=== PATIENT | male | born 1990 | race Two or more races ===

== ENCOUNTER 2017-03-07 12:56 | Inpatient (IN) | payer MEDICAID, OTHER ==
[~2017-03-07] VITALS: Ht 160 cm; Wt 49.1 kg
[2017-03-07] MEDS ORDERED: SODIUM CHLORIDE 0.9% 1,000 ML IVB ONE (13:49)
[2017-03-07 14:36] LABS: Basophils # (auto) 0.1 uL; Basophils % (auto) 0.3 % (0.0-2.0); DEFINITIVE VIEW TRANSMISSION; Eosinophils # (auto) 0.1 uL; Eosinophils % (auto) 0.5 % (0.0-7.0); Hemoglobin 14.6 g/dL (13.5-17.5); Lymphocytes % (auto) 18.3 % (10.0-50.0); Mean Corpuscular Hgb Conc. 33.1 g/dL (32.0-36.0); Mean Corpuscular Volume 93.7 fL (80.0-100.0); Mean Platelet Volume 9.1 fL (7.4-10.4); Monocytes # (auto) 2.4 uL; Monocytes % (auto) 14.9 % (0.0-12.0); Neutrophils # (auto) 10.7 uL; Platelet Count (auto) 236 10^3/uL (140-450); Red Cell Distribution Width 17.7 % (11.6-16.0); White Blood Cell 16.2 10^3/uL (4.4-10.8)
[2017-03-07 15:02] LABS: Albumin 4.5 g/dL (3.4-5.0); BUN/Creatinine Ratio 33.3; Bilirubin, Total 0.4 mg/dL (0.2-1.0); Calcium 9.8 mg/dL (8.5-10.1); Magnesium 2.7 mg/dL (1.6-2.6); Potassium 3.9 mmol/L (3.5-5.1); Total Protein 8.7 g/dL (6.4-8.2)
[2017-03-07] MEDS ORDERED: cefTRIAXone 1GM/50ML D5W 50 ML IV ONE (17:15)
[2017-03-07 17:54] LABS: Urine Bilirubin Negative (Negative); Urine Blood Negative /uL (Negative); Urine Color Yellow (Yellow); Urine Glucose Normal (Normal); Urine Ketone Negative (Negative); Urine Nitrite Negative (Negative); Urine RBC <1 /hpf (0 - 3); Urine Urobilinogen Normal (Negative); Urine pH 6.5 (5.0-8.0)
[2017-03-07] MEDS ORDERED: VALPROATE SOD 250 MG/5 ML ORAL SOLN GT ONE (19:00)
[2017-03-07] MEDS ORDERED: Fibersource Hn 1 Liter GT SCH (19:30)
[2017-03-07] MEDS ORDERED: LORazepam 0.5 MG TAB PEG PRN (19:30)
[2017-03-07] MEDS ORDERED: ONDANSETRON HCL 4 MG/2 ML VIAL IV PRN (19:45)
[2017-03-07] MEDS ORDERED: MORPHINE SULF INJ 2 MG/ML SYRINGE 1ML IV PRN ×2 (19:45)
[2017-03-07] MEDS ORDERED: NITROGLYCERIN 0.4 MG SL TAB SL PRN (19:45)
[2017-03-07] MEDS: VALPROATE SOD 250 MG/5 ML ORAL SOLN GT SCH (22:00)
[2017-03-07] MEDS: FREE WATER PEG SCH (22:20)
[2017-03-07] MEDS: lamoTRIgine 100 MG TAB PEG SCH (22:20)
[2017-03-07] MEDS: SODIUM CHLOR 0.9% PF (SALINE LOCK) 10ML VIAL IV SCH (22:20)
[2017-03-07 23:02] VITALS: BP 113/61
[2017-03-07 23:07] VITALS: BP 113/61
[2017-03-08] VITALS (7 sets, daily range): BP systolic 103–117; BP diastolic 57–74
[2017-03-08] MEDS ORDERED: LAM100T GT (01:54)
[2017-03-08] MEDS ORDERED: CLOB2.5S GT (01:54)
[2017-03-08] MEDS ORDERED: VALP250S16 GT ×2 (01:54)
[2017-03-08] MEDS: FREE WATER PEG SCH ×6 (02:00→21:31)
[2017-03-08] MEDS ORDERED: TIZA2CAP7 GT (02:42)
[2017-03-08] MEDS ORDERED: LORA1TAB12 GT (02:42)
[2017-03-08] MEDS ORDERED: NAPR-604 GT (02:58)
[2017-03-08] MEDS ORDERED: ALBU0.084 NEB (02:58)
[2017-03-08] MEDS ORDERED: [UNRECOGNIZED DRUG - CODE] GT (02:58)
[2017-03-08] MEDS: LORazepam 2MG/ML-1ML VIAL IV PRN ×2 (04:51→20:23)
[2017-03-08] MEDS: VALPROATE SOD 250 MG/5 ML ORAL SOLN GT SCH ×3 (06:07→22:18)
[2017-03-08] MEDS: SODIUM CHLOR 0.9% PF (SALINE LOCK) 10ML VIAL IV SCH ×3 (06:07→22:18)
[2017-03-08 06:13] LABS: Basophils # (auto) 0 uL; Basophils % (auto) 0.3 % (0.0-2.0); Eosinophils # (auto) 0.3 uL; Eosinophils % (auto) 2.6 % (0.0-7.0); Hematocrit 39.9 % (41.0-53.0); Hemoglobin 13.2 g/dL (13.5-17.5); Lymphocytes # (auto) 2.9 uL; Lymphocytes % (auto) 26.9 % (10.0-50.0); Mean Corpuscular Hemoglobin 31.2 pg (28.0-32.0); Mean Corpuscular Hgb Conc. 33.2 g/dL (32.0-36.0); Mean Corpuscular Volume 93.9 fL (80.0-100.0); Mean Platelet Volume 9.5 fL (7.4-10.4); Monocytes # (auto) 1.1 uL; Monocytes % (auto) 10.2 % (0.0-12.0); Neutrophils # (auto) 6.4 uL; Platelet Count (auto) 195 10^3/uL (140-450); Red Cell Distribution Width 17.9 % (11.6-16.0); White Blood Cell 10.6 10^3/uL (4.4-10.8)
[2017-03-08 06:27] LABS: Albumin 3.7 g/dL (3.4-5.0); Bilirubin, Total 0.3 mg/dL (0.2-1.0); Potassium 4.2 mmol/L (3.5-5.1); Total Protein 7.7 g/dL (6.4-8.2)
[2017-03-08] MEDS: lamoTRIgine 100 MG TAB PEG SCH ×2 (09:59→21:22)
[2017-03-08] MEDS: CLOBAZAM 2.5 MG/ML GT SCH ×2 (10:00→21:32)
[2017-03-08] MEDS ORDERED: CLOBAZAM 2.5 MG/ML PEG SCH (10:00)
[2017-03-08] MEDS ORDERED: ACETAMINOPHEN 650 mg PER 20 mL UD GT PRN (14:30)
[2017-03-08] MEDS: TIZANIDINE 4MG TABLET PEG SCH ×2 (14:36→21:31)
[2017-03-08] MEDS: NAPROXEN 500 MG TAB PEG PRN (15:52)
[2017-03-08] MEDS: LEVOFLOXACIN 750MG 150 ML IV SCH (18:24)
[2017-03-08] MEDS ORDERED: LORazepam 2MG/ML-1ML VIAL IV ONE (20:00)
[2017-03-08] MEDS: DOXYCYCLINE HYC 100MG/250ML 250 ML IV SCH (21:30)
[2017-03-08] MEDS: BUDESONIDE (INHALATION) 0.5 MG/2 ML NEB NEB SCH (23:40)
[2017-03-08] MEDS: ALBUTEROL SULF 2.5 MG/0.5ML(0.5%) NEB SOLN NEB PRN (23:44)
[2017-03-08] MEDS: IPRATROPIUM BROM 0.5 MG/2.5ML INH SOL NEB PRN (23:44)
[2017-03-09] VITALS (7 sets, daily range): BP systolic 103–111; BP diastolic 58–71
[2017-03-09] MEDS: FREE WATER PEG SCH ×4 (04:14→14:00)
[2017-03-09] MEDS: VALPROATE SOD 250 MG/5 ML ORAL SOLN GT SCH ×3 (05:56→21:28)
[2017-03-09] MEDS: TIZANIDINE 4MG TABLET PEG SCH ×3 (05:56→21:29)
[2017-03-09] MEDS: SODIUM CHLOR 0.9% PF (SALINE LOCK) 10ML VIAL IV SCH ×3 (05:56→21:29)
[2017-03-09] MEDS: BUDESONIDE (INHALATION) 0.5 MG/2 ML NEB NEB SCH ×2 (08:48→19:25)
[2017-03-09] MEDS: ALBUTEROL SULF 2.5 MG/0.5ML(0.5%) NEB SOLN NEB PRN (08:48)
[2017-03-09] MEDS: IPRATROPIUM BROM 0.5 MG/2.5ML INH SOL NEB PRN (08:48)
[2017-03-09] MEDS: DOXYCYCLINE HYC 100MG/250ML 250 ML IV SCH ×2 (09:14→21:20)
[2017-03-09] MEDS: lamoTRIgine 100 MG TAB PEG SCH ×2 (09:50→21:28)
[2017-03-09] MEDS: NAPROXEN 500 MG TAB PEG PRN (09:51)
[2017-03-09] MEDS: CLOBAZAM 2.5 MG/ML GT SCH ×2 (10:09→21:29)
[2017-03-09] MEDS: LEVOFLOXACIN 750MG 150 ML IV SCH (12:05)
[2017-03-09] MEDS: LORazepam 2MG/ML-1ML VIAL IV PRN (16:36)
[2017-03-09] MEDS: Fibersource Hn 1 Liter GT SCH (21:21)
[2017-03-10 05:00] VITALS: BP 122/71
[2017-03-10] MEDS: IPRATROPIUM BROM 0.5 MG/2.5ML INH SOL NEB PRN (05:47)
[2017-03-10] MEDS: ALBUTEROL SULF 2.5 MG/0.5ML(0.5%) NEB SOLN NEB PRN (05:48)
[2017-03-10] MEDS: BUDESONIDE (INHALATION) 0.5 MG/2 ML NEB NEB SCH (05:49)
[2017-03-10] MEDS: SODIUM CHLOR 0.9% PF (SALINE LOCK) 10ML VIAL IV SCH ×2 (06:02→14:06)
[2017-03-10] MEDS: VALPROATE SOD 250 MG/5 ML ORAL SOLN GT SCH ×2 (06:02→12:48)
[2017-03-10] MEDS: FREE WATER PEG SCH ×2 (06:03→10:00)
[2017-03-10] MEDS: Fibersource Hn 1 Liter GT SCH ×3 (06:03→12:00)
[2017-03-10] MEDS: TIZANIDINE 4MG TABLET PEG SCH ×2 (06:03→15:12)
[2017-03-10 08:00] VITALS: BP 116/57
[2017-03-10] MEDS: LORazepam 2MG/ML-1ML VIAL IV PRN (08:25)
[2017-03-10] MEDS: DOXYCYCLINE HYC 100MG/250ML 250 ML IV SCH (08:25)
[2017-03-10] MEDS: lamoTRIgine 100 MG TAB PEG SCH (10:51)
[2017-03-10] MEDS: LEVOFLOXACIN 750MG 150 ML IV SCH (10:51)
[2017-03-10] MEDS: CLOBAZAM 2.5 MG/ML GT SCH (11:26)
[2017-03-10 12:54] VITALS: BP 117/73
[2017-03-10 18:00] VITALS: BP 112/56
== END 2017-03-10 18:45 | disposition home or self-care (01) | DRG 53 ==
LOC: ER 12:56 → EDBD 12:56 → TELE 12:57 → TELE-WESTW 21:30
PROVIDERS: ADMIT Internal Medicine; ATTEND Internal Medicine
DX: G40.409 Other generalized epilepsy and epileptic syndromes, not intractable, without status epilepticus (principal); J18.9 Pneumonia, unspecified organism; F72 Severe intellectual disabilities; G80.9 Cerebral palsy, unspecified; Z83.3 Family history of diabetes mellitus
CPT/HCPCS: 36415; 71010; 80053; 80164; 81001; 83605; 83735; 85025; 87040; 87086; 94640; 94761; 96361; 96365; J0696; J1956; J3490

== ENCOUNTER 2017-11-15 04:10 | Emergency (ER) | payer MEDICAID ==
[~2017-11-15 04:10] MED LIST: ALBU0.084 NEB; CLOB2.5S GT; LAM100T GT; LORA1TAB12 GT; NAPR375T27 GT; TIZA2CAP7 GT; VALP250S16 GT; [UNRECOGNIZED DRUG - CODE] GT
[2017-11-15] MEDS ORDERED: ACETAMINOPHEN 650 mg PER 20 mL UD GT ONE (04:45)
[2017-11-15 07:17] VITALS: BP 122/66
== END 2017-11-15 10:02 | disposition home or self-care (01) ==
LOC: EDBD 04:10 → ER 04:14
DX: J06.9 Acute upper respiratory infection, unspecified (principal); G80.9 Cerebral palsy, unspecified
CPT/HCPCS: 71045

== ENCOUNTER 2024-09-21 15:17 | Inpatient (IN) | payer MEDICAID ==
[~2024-09-21] VITALS: Ht 157.5 cm; Wt 70.0 kg
[~2024-09-21 15:17] MED LIST changes: +LORA-1123 GT; -LORA1TAB12 GT; +NAPR-957 GT; -NAPR375T27 GT; -VALP250S16 GT; +VALP250S19 GT; +[UNRECOGNIZED DRUG - CODE] GT; -[UNRECOGNIZED DRUG - CODE] GT
--- NOTE | 2024-09-21 15:39 | ED.PDOC ---
SOB-HPI HPI Comments HPI: Poor Historian. 33 y.o non verbal male, presents to the ED via EMS for an evaluation of congestion associated with a cough, phlegm and SOB that started 1-2 days ago. Mother reports patient is on 2 liters oxygen at home via [place], states the past 2 days his saturations have dipped down to 86%-90%. Mother reports a fever of 102 F, has been giving Tylenol and last dosage was at 11am. EMS reports patient's SPO2 read 90% with 2 liters, increased it to 4 liters and has been saturating at 94%. EMS also notes that patient was tachycardiac at 128 and febrile at 99.1 F. Mother reports patient had similar symptoms in the past. No recent use of antibiotics, contact exposure. Vital signs: BP: 123/76 HR: 103 Temp: 99.1 F SPO2: 94% on 4 liters Oxygen NC RR: 18 Patient denies any allergies Past medical history: Microcephalus, Nonverbal and quadriplegic Past surgical history: G-Tube REVIEW OF SYSTEMS: CONSTITUTIONAL: Denies acute: diaphoresis, chills, HEAD: Denies acute: headache, photophobia Eyes: Denies acute: Double vision, vision loss, eye pain, eye discharge. EARS: Denies acute: tinnitus, hearing loss, ear discharge, ear pain, THROAT: Denies acute: sore throat, swelling, difficulty swallowing , pain with swallowing, change in voice. NECK: Denies acute: neck pain, neck swelling, stiff neck. HEART: Denies acute : chest pain, palpitations, LUNGS: Denies acute: wheezing, hemoptysis ABDOMEN: Denies acute: abdominal pain, Nausea, Vomiting, diarrhea, melena , hematemesis, hematochezia SKIN: Denies acute: rash, redness, lesions, itchiness. EXTREMITIES: Denies acute: calf pain, numbness, tingling, weakness, denies pain in extremity. Denies acute: Low back pain. Neuro: Denies acute: focal neurological deficit, motor or sensory focal neurological deficit, tremors, seizure like activity, confusion, dizziness, change in mental status, loss of bowel or bladder function, cauda equina like symptoms. : Denies acute: dysuria, hematuria, flank pain, increase in urinary frequency. PSYCH: Denies acute: hallucination, suicidal ideation, homicidal ideation. PHYSICAL EXAM: General: Mild to moderate acute distress, awake and alert. Head: Microcephalic, atraumatic. Neck: supple, trachea is midline, no swelling. Throat: Speech is nonverbal At baseline. Dry oral mucosa. Eyes:, no erythema, no purulent discharge, no proptosis, no icterus. Heart: regular tachycardia, no significant murmur appreciated. Lungs: Zcsc-wk-cecsryzy respiratory distress, No wheezing, right-sided rhonchi, no crackles. No stridors Abdomen: non tender to palpation, non distended, soft, no guarding, no rebound, + bowel sounds. Neuro: Awake, Alert, at baseline per mother at bedside Skin: no petechia, no purpura, no cyanosis, non-pale, not jaundice. Lower extremities: --no - Pitting edema no acute deformity, no focal swelling, no calf TTP. Face: no apparent facial droop. Chief Complaint: Shortness of Breath Time Seen by MD: 15:22 Reviewed notes: Allergies Information Source: Relative (Mother), Emergency Med Personnel Mode of Arrival: EMS Timing: Days (2) Past Medical History PAST MEDICAL HISTORY: Seizures Past Medical History (Other): quadriplegic, Microcephalus, non verbal Surgical History (Other): G-tube Family History Family History: Unobtainable Social History Smoker: Non-Smoker Alcohol: Denies ETOH Use Drugs: Denies Drug Use Lives In: Home Was a procedure done? Was a procedure done?: No Differential Dx Differential Diagnosis: Asthma, Bronchitis, Respiratory Distress, URI, Other (DDx include ACS, unstable angina, anxiety, PE, pneumothroax, neoplasm, cardiac ischemia, COPD, asthma, CHF, pleural effusion, tobacco abuse, pneumonia, hypoxia, hypercapnia, anemia., infection/sepsis., pulmonary edema. Asthma, Cardiac tamponade, infection.) X-Ray, Labs, Meds, VS Vital Signs Date Time Temp Pulse Resp B/P (MAP) Pulse Ox O2 Delivery O2 Flow Rate FiO2 09/21/24 19:00 108 20 106/61 (76) 96 09/21/24 17:48 22 98 Nasal Cannula* 2 28 09/21/24 17:00 101 16 102/59 (73) 98 09/21/24 15:40 119 22 92 Nasal Cannula* 3 32 09/21/24 15:22 99.1 103 18 123/76 (92) 94 09/21/24 15:22 99.1 103 18 123/76 (92) 94 99.1 Lab Test 09/21/24 16:03 09/21/24 15:47 Range/Units White Blood Count 17.6 H 4.4-10.8 10^3/uL Red Blood Count 4.83 4.5-5.90 10^6/uL Hemoglobin 16.3 13.5-17.5 g/dL Hematocrit 46.3 41.0-53.0 % Mean Corpuscular Volume 95.9 80.0-100.0 fL Mean Corpuscular Hemoglobin 33.7 H 28.0-32.0 pg Mean Corpuscular Hemoglobin Concent 35.1 32.0-36.0 g/dL Red Cell Distribution Width 16.1 H 11.8-14.3 % Platelet Count 153 140-450 10^3/uL Mean Platelet Volume 7.9 6.9-10.8 fL Neutrophils (%) (Auto) 55.2 37.0-80.0 % Lymphocytes (%) (Auto) 29.0 10.0-50.0 % Monocytes (%) (Auto) 15.1 H 0.0-12.0 % Eosinophils (%) (Auto) 0.3 0.0-7.0 % Basophils (%) (Auto) 0.4 0.0-2.0 % Neutrophils # (Auto) 9.7 H 1.6-8.6 10 ^3/uL Lymphocytes # (Auto) 5.1 0.4-5.4 10 ^3/uL Monocytes # (Auto) 2.7 H 0-1.3 10 ^3/uL Eosinophils # (Auto) 0.1 0-0.8 10 ^3/uL Basophils # (Auto) 0.1 0-0.2 10 ^3/uL Nucleated Red Blood Cells 0.6 % Sodium Level 130 L 136-145 mmol/L Potassium Level 4.4 3.5-5.1 mmol/L Chloride Level 99 98-107 mmol/L Carbon Dioxide Level 24 20-31 mmol/L Anion Gap 7 5-15 Blood Urea Nitrogen 12 9-23 mg/dL Creatinine 0.44 L 0.700-1.30 mg/dL Glomerular Filtration Rate Calc 145 >90 mL/min BUN/Creatinine Ratio 27.3 H 10.0-20.0 Serum Glucose 95 74-106 mg/dL Lactic Acid Level 1.3 0.4-2.0 mmol/L Calcium Level 9.7 8.7-10.4 mg/dL Magnesium Level 2.3 1.6-2.6 mg/dL Total Bilirubin 0.6 0.2-1.0 mg/dL Aspartate Amino Transferase (AST) 42 H 13-40 U/L Alanine Aminotransferase (ALT) 35 7-40 U/L Alkaline Phosphatase 108 46-116 U/L Troponin I High Sensitivity 38 </=54 ng/L B-Type Natriuretic Peptide 186.64 0-100 pg/mL Total Protein 7.3 5.7-8.2 g/dL Albumin 4.5 3.2-4.8 g/dL Influenza Type A Antigen Negative Negative Influenza Type B Antigen Negative Negative SARS-CoV-2 Antigen (Rapid) Negative NEGATIVE Current Medications Medications (Trade) Dose Ordered Sig/Misael Route Start Time Stop Time Status Last Admin Sodium Chloride 500 ml @ 500 mls/hr Q1H ONCE IV 09/21/24 15:30 09/21/24 16:29 DC 09/21/24 16:08 Ceftriaxone Sodium 50 ml @ 100 mls/hr ONCE ONCE IV 09/21/24 15:30 09/21/24 15:59 DC 09/21/24 16:08 Albuterol (Ventolin Medneb) 2.5 mg ONCE ONCE NEB 09/21/24 17:30 09/21/24 17:31 DC 09/21/24 17:47 Ipratropium [place] (Atrovent Medneb) 1 mg ONCE ONCE NEB 09/21/24 17:30 09/21/24 17:31 DC 09/21/24 17:47 [place] [id number] Ph: [phone] DIAGNOSTIC IMAGING Diagnostic Imaging Report : [id number] Signed PATIENT: ASAI MORALES ACCT: [id number] UNIT: [id number] : 1990 LOC: ER ROOM / BED: / AGE / SEX: 33 / M ADM STATUS: REG ER SERVICE 1527 ORDERING PHYSICIAN: KEON COOMBS DO PROCEDURE(s): CXRP - CHEST PORTABLE REASON: sob ORDER NUMBER(s): [id number], ACCESSION NUMBER(s): [id number] Procedure: XY CHEST PORTABLE 09/21/2024 03:47 PM Indication: sob. Comparison: None TECHNIQUE: XY CHEST PORTABLE FINDINGS: Medical devices: None. Cardiomediastinal: The heart is normal in size. Pulmonary vasculature is within normal limits. Lungs: Pulmonary opacities are seen in the left lower lung zone. Parenchymal scarring noted in the right midlung zone. The costophrenic angles are clear. No pneumothorax. Bones/soft tissues: No acute abnormality is noted. Levoscoliosis of the thoracic spine noted. IMPRESSION: 1. Left lower lobe pneumonia. ATED BY: AILIN BISWAS MD DICTATED DATE/TIME: 09/21/241615 SIGNED BY: AILIN BISWAS MD SIGNED DATE/TIME: 09/21/241615 CC: Time of 1ST Reevaluation: 15:26 Reevaluation 1ST: Unchanged Patient Education/Counseling: Other Family Education/Counseling: Diagnosis, Treatment, Prognosis Comments Patient presented with the above HPI.--dyspnea---workup was initiated. patient was found with the above mentioned diagnosis. Patient was given: Fluids, DuoNeb treatment, Rocephin, Patient ED course and VS have been stabilized. Patient has been reassessed in the ED and remained in a stable condition. Pertinent incidental findings were discussed with the patient and/or family. Patient/family voices understanding and is agreeable with plan. Patient has been observed in the ED adequate length of time to insure improvement/stability. patient was admitted to the medicine team for further evaluation and treatment of their presentation. All the reports of any imaging studies that were ordered by myself were reviewed by myself. Departure 1 Departure Time of Disposition: 16:40 Impression: Primary Impression: Pneumonia Additional Impressions: Hypoxemia Leukocytosis Disposition: ADMITTED INPATIENT Admit to: Tele Condition: Guarded Discharged With: Self Critical Care Note Critical Care Time?: Yes (35 min-critical care time only) I personally scribed for KEON COOMBS DO ([email or web address]) on 09/21/24 at 15:39. Electronically submitted by Alisha Krishnamurthy ([facility]). I personally scribed for KEON COOMBS DO ([email or web address]) on 09/21/24 at 16:50. Electronically submitted by Alisha Krishnamurthy ([facility]). KEON COOMBS DO Sep 21, 2024 15:39
[2024-09-21 15:40] VITALS: PULSE 119; RESP 22; O2SAT 92
[2024-09-21] MEDS: SODIUM CHLORIDE 0.9% 500 ML IV ONE (16:08)
[2024-09-21] MEDS: cefTRIAXone 1GM/50ML D5W 50 ML IV ONE (16:08)
--- NOTE | 2024-09-21 16:18 | DVH ---
Procedure: XY CHEST PORTABLE 09/21/2024 03:47 PM Indication: sob. Comparison: None TECHNIQUE: XY CHEST PORTABLE FINDINGS: Medical devices: None. Cardiomediastinal: The heart is normal in size. Pulmonary vasculature is within normal limits. Lungs: Pulmonary opacities are seen in the left lower lung zone. Parenchymal scarring noted in the ri ght midlung zone. The costophrenic angles are clear. No pneumothorax. Bones/soft tissues: No acute abnormality is noted. Levoscoliosis of the thoracic spine noted. IMPRESSION: 1. Left lower lobe pneumonia.
[2024-09-21 16:23] LABS: Basophils # (auto) 0.1 10 ^3/uL (0-0.2); Basophils % (auto) 0.4 % (0.0-2.0); Eosinophils # (auto) 0.1 10 ^3/uL (0-0.8); Eosinophils % (auto) 0.3 % (0.0-7.0); Hematocrit 46.3 % (41.0-53.0); Hemoglobin 16.3 g/dL (13.5-17.5); Lymphocytes # (auto) 5.1 10 ^3/uL (0.4-5.4); Mean Corpuscular Hemoglobin 33.7 pg (28.0-32.0); Mean Corpuscular Hgb Conc. 35.1 g/dL (32.0-36.0); Mean Corpuscular Volume 95.9 fL (80.0-100.0); Monocytes # (auto) 2.7 10 ^3/uL (0-1.3); Monocytes % (auto) 15.1 % (0.0-12.0); Neutrophils # (auto) 9.7 10 ^3/uL (1.6-8.6); Neutrophils % (auto) 55.2 % (37.0-80.0); Nucleated Red Blood Cells % 0.6 %; Platelet Count (auto) 153 10^3/uL (140-450); Red Blood Cells 4.83 10^6/uL (4.5-5.90); Red Cell Distribution Width 16.1 % (11.8-14.3); White Blood Cell 17.6 10^3/uL (4.4-10.8)
[2024-09-21 16:44] LABS: Alanine Aminotransferase 35 U/L (7-40); Albumin 4.5 g/dL (3.2-4.8); Alkaline Phosphatase 108 U/L (46-116); Anion Gap 7 (5-15); Aspartate Aminotransferase 42 U/L (13-40); BUN/Creatinine Ratio 27.3 (10.0-20.0); Blood Urea Nitrogen 12 mg/dL (9-23); Calcium 9.7 mg/dL (8.7-10.4); Carbon Dioxide 24 mmol/L (20-31); Chloride 99 mmol/L (98-107); Glucose 95 mg/dL (74-106); Magnesium 2.3 mg/dL (1.6-2.6); Potassium 4.4 mmol/L (3.5-5.1); Sodium 130 mmol/L (136-145)
[2024-09-21 16:45] LABS: Bilirubin, Total 0.6 mg/dL (0.2-1.0); Total Protein 7.3 g/dL (5.7-8.2)
[2024-09-21 16:53] LABS: COVID19 ANTIGEN SOFIA FIA NEGATIVE (NEGATIVE)
[2024-09-21 16:54] LABS: Rapid Influenza A Negative (Negative); Rapid Influenza B Negative (Negative)
[2024-09-21] MEDS: ALBUTEROL SULF 2.5 MG/0.5ML(0.5%) NEB SOLN NEB ONE (17:47)
[2024-09-21] MEDS: IPRATROPIUM BROM 0.5 MG/2.5ML INH SOL NEB ONE (17:47)
[2024-09-21 19:45] VITALS: PULSE 97; RESP 23; O2SAT 98
[2024-09-21] MEDS ORDERED: MORPHINE SULFATE INJ 2 MG/ml SYRG IV PRN (20:45)
[2024-09-21] MEDS ORDERED: NITROGLYCERIN 0.4 MG SL TAB SL PRN (20:45)
[2024-09-21 21:23] LABS: Basophils # (auto) 0 10 ^3/uL (0-0.2); Basophils % (auto) 0.2 % (0.0-2.0); Eosinophils # (auto) 0.1 10 ^3/uL (0-0.8); Eosinophils % (auto) 0.4 % (0.0-7.0); Hematocrit 51.4 % (41.0-53.0); Hemoglobin 17.4 g/dL (13.5-17.5); Lymphocytes # (auto) 6.2 10 ^3/uL (0.4-5.4); Mean Corpuscular Hemoglobin 33.8 pg (28.0-32.0); Mean Corpuscular Hgb Conc. 33.8 g/dL (32.0-36.0); Mean Corpuscular Volume 99.9 fL (80.0-100.0); Monocytes # (auto) 1.6 10 ^3/uL (0-1.3); Neutrophils # (auto) 10.3 10 ^3/uL (1.6-8.6); Neutrophils % (auto) 56.4 % (37.0-80.0); Nucleated Red Blood Cells % 0.9 %; Platelet Count (auto) 119 10^3/uL (140-450); Red Blood Cells 5.14 10^6/uL (4.5-5.90); Red Cell Distribution Width 16.4 % (11.8-14.3); White Blood Cell 18.3 10^3/uL (4.4-10.8)
[2024-09-21] MEDS ORDERED: ACETAMINOPHEN IV 1000 MG/100ML (10MG/ML) IV PRN (21:30)
[2024-09-21 21:43] LABS: Alanine Aminotransferase 41 U/L (7-40); Albumin 4.7 g/dL (3.2-4.8); Alkaline Phosphatase 133 U/L (46-116); Anion Gap 10 (5-15); Aspartate Aminotransferase 51 U/L (13-40); BUN/Creatinine Ratio 13.7 (10.0-20.0); Bilirubin, Total 0.5 mg/dL (0.2-1.0); Blood Urea Nitrogen 7 mg/dL (9-23); Calcium 9.8 mg/dL (8.7-10.4); Carbon Dioxide 21 mmol/L (20-31); Chloride 101 mmol/L (98-107); Glucose 113 mg/dL (74-106); Sodium 132 mmol/L (136-145)
[2024-09-22] VITALS (8 sets, daily range): BP systolic 90–128; BP diastolic 58–67; PULSE 77–101; RESP 17–20; TEMP 97.6–99.3; O2SAT 90–99
[2024-09-22] MEDS: ENOXAPARIN SOD 40 MG/0.4 ML SYRINGE SC ONE
[2024-09-22] MEDS: SODIUM CHLORIDE 0.9% 1,000 ML IV SCH ×2 (00:30→10:32)
--- NOTE | 2024-09-22 00:36 | DVHHPRES ---
History of Present Illness Resident Creating Document: PARDEEP LEBLANC RESIDENT History of Present Illness ASIA MORALES is 33 years old nonverbal, male with a PMH of microcephaly, quadriplegia accompanied by mother presented to the ED with the chief complaints of cough, congestion since 1 day prior to admission. Patient mother reported, has been coughing, congested since 3:00 a.m. yesterday morning with saturation 86-88 associated with fever and shortness of breath, which prompted him to visit ED. patient mother reported he does have sick contacts, patient's mother, family members are have flu-like symptoms. On my assessment patient denies vomiting, diarrhea, chest pain, diaphoresis and other associated symptoms Past Medical History Microcephalic, quadriplegia, seizure, recurrent pneumonias Past Surgical History G-tube Family History: None Past Social History Lives at home with the family Review of Systems Constitutional: Yes: Fever, Chills Eyes: No: Pain, Vision change, Conjunctivae inflammation, Eyelid inflammation, Other, Redness ENT: No: Ear pain, Ear discharge, Nose pain, Nose discharge, Nose congestion, Mouth pain, Mouth swelling, Throat pain, Throat swelling, Other Respiratory: Cough, Shortness of breath Cardiovascular: No: Chest Pain, Palpitations, Orthopnea, Paroxysmal Noc. Dyspnea, Edema, Lt Headedness, Other Gastrointestinal: No: Nausea, Vomiting, Abdominal Pain, Diarrhea, Constipation, Melena, Hematochezia, Other Genitourinary: No Dysuria, No Frequency, No Incontinence, No Hematuria, No Retention, No Other Musculoskeletal: other; No: neck pain, shoulder pain, arm pain, back pain, hand pain, leg pain, foot pain Skin: No: Rash, Lesions, Jaundice, Bruising, Other Neurological: Other (Nonverbal, quadriplegia, microcephaly) Allergies: Coded Allergies: NO KNOWN ALLERGIES (Unverified , 03/07/17) Medications Current Medications Medications Dose Ordered Sig/Misael Route Start Time Stop Time Status Last Admin Dose Admin Nitroglycerin 0.4 mg Q5MINP PRN SL 09/21/24 20:45 Morphine Sulfate 2 mg Q30M PRN IV 09/21/24 20:45 Enoxaparin Sodium 40 mg DAILY SC 09/23/24 10:00 Ceftriaxone Sodium 50 ml @ 100 mls/hr DAILY@09 IV 09/22/24 09:00 Cancel Azithromycin 250 ml @ 125 mls/hr DAILY IV 09/22/24 00:30 Ceftriaxone Sodium 50 ml @ 100 mls/hr DAILY@ IV 09/22/24 09:00 Sodium Chloride 1,000 ml @ 75 mls/hr [id number] IV 09/22/24 00:30 UNV Exam Vital Signs Vital Signs Date Time Temp Pulse Resp B/P (MAP) Pulse Ox O2 Delivery O2 Flow Rate FiO2 09/21/24 23:28 99.4 120 26 106/64 (78) 97 99.4 09/21/24 19:45 Nasal Cannula* 3 32 Exam General Appearance: Pt is lying on bed, Non verabal HEENT: Atraumatic, Mucous membranes moist/pink Respiratory: Clear to auscultation, decreased air movement Cardiovascular: Regular rate, Normal S1, Normal S2, No murmurs Abdominal: Active bowel sounds, Soft, no distention, no tenderness Extremities: Quadriplegic Skin: deferred Neuro: Nonverbal, quadriplegia Psych/Mental Status: Mental status NL, Mood NL Nurse was there as sharperone during examination Labs/Xrays Labs Test 09/21/24 21:15 09/21/24 16:03 09/21/24 15:47 Range/Units White Blood Count 18.3 H 4.4-10.8 10^3/uL Red Blood Count 5.14 4.5-5.90 10^6/uL Hemoglobin 17.4 13.5-17.5 g/dL Hematocrit 51.4 # 41.0-53.0 % Mean Corpuscular Volume 99.9 # 80.0-100.0 fL Mean Corpuscular Hemoglobin 33.8 H 28.0-32.0 pg Mean Corpuscular Hemoglobin Concent 33.8 32.0-36.0 g/dL Red Cell Distribution Width 16.4 H 11.8-14.3 % Platelet Count 119 L 140-450 10^3/uL Mean Platelet Volume 8.2 6.9-10.8 fL Neutrophils (%) (Auto) 56.4 37.0-80.0 % Lymphocytes (%) (Auto) 34.0 10.0-50.0 % Monocytes (%) (Auto) 9.0 0.0-12.0 % Eosinophils (%) (Auto) 0.4 0.0-7.0 % Basophils (%) (Auto) 0.2 0.0-2.0 % Neutrophils # (Auto) 10.3 H 1.6-8.6 10 ^3/uL Lymphocytes # (Auto) 6.2 H 0.4-5.4 10 ^3/uL Monocytes # (Auto) 1.6 H 0-1.3 10 ^3/uL Eosinophils # (Auto) 0.1 0-0.8 10 ^3/uL Basophils # (Auto) 0 0-0.2 10 ^3/uL Nucleated Red Blood Cells 0.9 % Sodium Level 132 L 136-145 mmol/L Potassium Level 5.0 3.5-5.1 mmol/L Chloride Level 101 98-107 mmol/L Carbon Dioxide Level 21 20-31 mmol/L Anion Gap 10 5-15 Blood Urea Nitrogen 7 L 9-23 mg/dL Creatinine 0.51 L 0.700-1.30 mg/dL Glomerular Filtration Rate Calc 139 >90 mL/min BUN/Creatinine Ratio 13.7 10.0-20.0 Serum Glucose 113 H 74-106 mg/dL Calcium Level 9.8 8.7-10.4 mg/dL Total Bilirubin 0.5 0.2-1.0 mg/dL Aspartate Amino Transferase (AST) 51 H 13-40 U/L Alanine Aminotransferase (ALT) 41 H 7-40 U/L Alkaline Phosphatase 133 H 46-116 U/L Total Protein 8.0 5.7-8.2 g/dL Albumin 4.7 3.2-4.8 g/dL Lactic Acid Level 1.3 0.4-2.0 mmol/L Magnesium Level 2.3 1.6-2.6 mg/dL Troponin I High Sensitivity 38 </=54 ng/L B-Type Natriuretic Peptide 186.64 0-100 pg/mL Influenza Type A Antigen Negative Negative Influenza Type B Antigen Negative Negative SARS-CoV-2 Antigen (Rapid) Negative NEGATIVE Assessment/Plan Assessment/Plan # sepsis likely due to pneumonia # Acute G+/G- bacterial PNA # acute hypoxic respiratory failure likely due to above -evident on CXR -currently in 3 L oxygen at OR -currently on Rocephin, azithromycin and IVF -ordered respiratory, blood cultures -COVID-19 and influenza negative -monitor lab # hyponatremia -currently on IVF -monitor lab # mild transaminitis -monitor lab Lovenox for now No gi ppx Diabetes diet Reconciled home med Goals of care discussed with the patient for more than 27 minutes: Full code status Case management discussed with Dr. Dove, patient's nurse Plan discussed with: Patient My Orders Orders - PARDEEP LEBLANC RESIDENT Procedure Category Date Status Time Admit ADMIT 09/21/24 Transmitted 20:40 Allergies ALONZO 09/21/24 In Process 20:40 Code Status CODE 09/21/24 Transmitted 20:40 Complete Blood Count LAB 09/22/24 Logged 04:00 Comprehensive LAB 09/22/24 Logged Metabolic Panel 04:00 Nitroglycerin PHA 09/21/24 In Process Sublingual (Ntrostat 20:45 Morphine Sulfate PHA 09/21/24 In Process Injection 20:45 Oxygen By Nasal RT 09/21/24 Transmitted Cannula 20:40 Stat Ekg For Chest ALONZO 09/21/24 In Process Pain 20:40 Notify Md Of Changes ALONZO 09/21/24 In Process From Base 20:40 Management Sme For ALONZO 09/21/24 In Process 24 Hours 20:40 Emergency Dysrhythmia ALONZO 09/21/24 In Process Protocol 20:40 Rhythm Strips Once ALONZO 09/21/24 In Process Every Shift 20:40 Regular Diet DIET 09/22/24 Transmitted Breakfast Drug Screen LAB 09/21/24 Logged 23:54 Hemoglobin A1c LAB 09/21/24 Logged 23:54 PTPTT LAB 09/22/24 Logged 04:00 Thyroid Stimulating LAB 09/21/24 Logged Hormone 23:54 Urinalysis LAB 09/21/24 Logged 23:54 Vitamin B12 LAB 09/21/24 Logged 23:54 Vitamin D, 25-Hydroxy LAB 09/21/24 Logged 23:54 Enoxaparin Sodium PHA 09/23/24 In Process (Lovenox) 10:00 Azithromycin 500mg/ PHA 09/22/24 In Process 250ml (Zithromax 50 00:30 Blood Culture PHIL 09/22/24 Logged 00:29 Urine Bacterial PHIL 09/22/24 Logged Culture 00:29 Respiratory Culture PHIL 09/22/24 Logged W/ Gs 00:29 Ceftriaxone 1gm/50ml PHA 09/22/24 In Process D5w (Rocephin) 09:00 Sodium Chloride 0.9% PHA 09/22/24 Logged 00:30 PARDEEP LEBLANC RESIDENT Sep 22, 2024 00:36
[2024-09-22] MEDS: AZITHROMYCIN 500MG/ 250ML 250 ML IV SCH (01:01)
[2024-09-22 06:44] LABS: Chloride 106 mmol/L (98-107); Potassium 4.5 mmol/L (3.5-5.1); Sodium 136 mmol/L (136-145)
[2024-09-22 06:45] LABS: Anion Gap 6 (5-15); Carbon Dioxide 24 mmol/L (20-31)
[2024-09-22 06:46] LABS: Calcium 8.9 mg/dL (8.7-10.4)
[2024-09-22 06:49] LABS: Alkaline Phosphatase 103 U/L (46-116)
[2024-09-22 06:50] LABS: Glucose 74 mg/dL (74-106)
[2024-09-22 06:51] LABS: Aspartate Aminotransferase 38 U/L (13-40); Blood Urea Nitrogen 6 mg/dL (9-23)
[2024-09-22 06:52] LABS: Albumin 3.7 g/dL (3.2-4.8)
[2024-09-22 06:53] LABS: Bilirubin, Total 0.4 mg/dL (0.2-1.0); Total Protein 6.3 g/dL (5.7-8.2)
[2024-09-22 07:05] LABS: Alanine Aminotransferase 33 U/L (7-40)
[2024-09-22 08:15] LABS: Basophils # (auto) 0 10 ^3/uL (0-0.2); Basophils % (auto) 0.2 % (0.0-2.0); Eosinophils # (auto) 0 10 ^3/uL (0-0.8); Eosinophils % (auto) 0.3 % (0.0-7.0); Hematocrit 42.5 % (41.0-53.0); Hemoglobin 14.1 g/dL (13.5-17.5); Lymphocytes # (auto) 3.9 10 ^3/uL (0.4-5.4); Lymphocytes % (auto) 35.1 % (10.0-50.0); Mean Corpuscular Hgb Conc. 33.2 g/dL (32.0-36.0); Mean Corpuscular Volume 99.2 fL (80.0-100.0); Monocytes # (auto) 1.4 10 ^3/uL (0-1.3); Monocytes % (auto) 12.5 % (0.0-12.0); Neutrophils # (auto) 5.8 10 ^3/uL (1.6-8.6); Neutrophils % (auto) 51.9 % (37.0-80.0); Nucleated Red Blood Cells % 0.2 %; Platelet Count (auto) 136 10^3/uL (140-450); Red Blood Cells 4.28 10^6/uL (4.5-5.90); Red Cell Distribution Width 16.3 % (11.8-14.3); White Blood Cell 11.1 10^3/uL (4.4-10.8)
[2024-09-22] MEDS ORDERED: CALAMINE TOPical LOTION180 ML TOP PRN (08:45)
[2024-09-22] MEDS: SODIUM CHLORIDE 0.9% 500 ML IV ONE ×2 (08:57→16:09)
[2024-09-22] MEDS ORDERED: cefTRIAXone 1GM/50ML D5W 50 ML IV SCH (09:00)
[2024-09-22] MEDS: cefTRIAXone 1GM/50ML D5W 50 ML IV SCH (09:12)
[2024-09-22] MEDS: SODIUM CHLORIDE 0.9% 250 ML IV ONE (09:13)
[2024-09-22] MEDS: lamoTRIgine 100 MG TAB GT SCH (10:00)
[2024-09-22] MEDS: DIVALPROEX SOD PO SCH ×2 (11:00→18:57)
[2024-09-22] MEDS: NUTREN 1.0 250 ML BTL GT SCH (12:00)
[2024-09-22] MEDS: ERGOCALCIFEROL 50,000 UNIT(1.25MG) CAP PO SCH (12:47)
[2024-09-22] MEDS ORDERED: LAMO200T34 PO (13:12)
[2024-09-22] MEDS ORDERED: NAPR-957 PO (13:12)
[2024-09-22] MEDS ORDERED: LORA2CON PO (13:12)
[2024-09-22] MEDS ORDERED: DIVA500T13 PO (13:12)
[2024-09-22] MEDS ORDERED: DIVA1TAB37 PO (13:12)
[2024-09-22] MEDS ORDERED: TIZA4TAB9 PO (13:12)
[2024-09-22] MEDS ORDERED: PRO125RS PO (13:12)
[2024-09-22 14:31] LABS: INR 1.13 (0.9-1.15); Partial Thromboplastin Time 26.8 SEC (24.5-34.5); Prothrombin Time 11.9 sec (9.3-11.8)
[2024-09-22] MEDS ORDERED: CLOB2.5S OR (15:19)
[2024-09-22] MEDS ORDERED: LORazepam 2MG/ML-1ML VIAL IV PRN (15:30)
[2024-09-22] MEDS ORDERED: SODIUM CHLORIDE 0.9% 250 ML IV ONE (15:30)
[2024-09-22] MEDS ORDERED: Jevity 1.2 Cal/Fiber 1 Liter GT SCH (16:30)
--- NOTE | 2024-09-22 17:13 | DVHPNRES ---
Progress Note Date Seen: Sep 22, 2024 Resident Creating Document: DEBBY HOFFMAN RESIDENT Medical Necessity Reason Pt with a Central, PICC or Fol: No Subjective Review of Systems This is a 33-year-old nonverbal male patient with PMHx of cerebral palsy, microcephaly, 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 Per patient's mother present at bedside, she was experiencing sore throat, fever and chills following which the patient also started experiencing similar symptoms associated with a productive cough which is yellow and sometimes pinkish in color. Says that the patient has oxygen at home which he uses intermittently. Patient was saturating 88% on 2 L oxygen. Patient was distressed, his respiratory rate was high and he was experiencing fever and chills but denies nausea/vomiting. Patient's mother reports that ES chronically constipated but recently started getting loose stools but less than 3 stools in a day. Patient is nonambulatory and he experiencing seizures every couple of days which are grand mal. He has a epilepsy as a child. Tumbler Drier Operator: Dr. Thomas PCP Dr. Salazar Home medications: Lamotrigine, tizanidine, valproate, lorazepam Patient is seen and examined in ER. Mother is the power of workers compensation defense attorney. Reports no acute distress but is nonfvcal. Mother says that this is the patient's baseline. Chest x-ray completed shows left lobar lobe opacity, started on IV azithromycin and ceftriaxone. Objective vital signs Vital Sign Date Time Temp Pulse Resp B/P (MAP) Pulse Ox O2 Delivery O2 Flow Rate FiO2 09/22/24 08:16 97.5 70 14 80/48 (59) 96 97.5 09/22/24 07:30 Nasal Cannula* 3 32 Total Intake and Output 09/21/24 09/21/24 09/22/24 15:00 23:00 07:00 Intake Total 550 ml Balance 550 ml medications Current Medications Medications Dose Ordered Sig/Misael Route Start Time Stop Time Status Last Admin Dose Admin Nitroglycerin 0.4 mg Q5MINP PRN SL 09/21/24 20:45 Morphine Sulfate 2 mg Q30M PRN IV 09/21/24 20:45 Enoxaparin Sodium 40 mg DAILY SC 09/23/24 10:00 Ceftriaxone Sodium 50 ml @ 100 mls/hr DAILY@09 IV 09/22/24 09:00 Cancel Azithromycin 250 ml @ 125 mls/hr DAILY IV 09/22/24 00:30 09/22/24 10:32 125 MLS/HR Ceftriaxone Sodium 50 ml @ 100 mls/hr DAILY@09 IV 09/22/24 09:00 09/22/24 09:12 100 MLS/HR Lamotrigine 200 mg BID GT 09/22/24 10:00 Patient Own Medication 3 DAILY PO 09/22/24 11:00 Calamine 1 applic QIDP PRN TOP 09/22/24 08:45 Ergocalciferol 50,000 unit Q7D PO 09/22/24 09:45 Patient Own Medication 4 QPM PO 09/22/24 18:00 Lorazepam 1 mg Q5MINP PRN IV 09/22/24 15:30 Lorazepam 0.5 mg Q6HP PRN IV 09/22/24 15:30 Enteral Nutritional Formula 1,000 ml 30ML/HR GT 09/22/24 16:30 Patient Own Medication 1 DAILY PO 09/23/24 10:00 UNV Examination Young male patient lying in bed, in no acute distress General: Afebrile, palor, mucosae are moist Cardiovascular: Regular S1 and S2. No murmurs, gallops or rubs. No JVD elevation. No pedal edema. Grade 1 pressure sore present on the malleolus in the lower extremity. Skin is intact. Respiratory: Saturating 95% on 2 L nasal cannula. Clear lung sounds on auscultation Abdomen: Soft, nontender, nondistended, normoactive bowel sounds, no rebound tenderness, no organomegaly, no masses Genitourinary: Deferred MSK/skin: Mobilizes 4 limbs. Skin is dry and warm Neurological: No motor, no sensitive deficits, normal speech. Pupils are isocoric and reactive. Psych/Mental Status: Could not be determined laboratory and microbiology Laboratory Tests 09/22/24 07:49 09/22/24 06:05 Test 09/22/24 06:05 Range/Units Serum Glucose 74 74-106 mg/dL Microbiology Date/Time Source Procedure Growth Status 09/21/24 16:03 Blood Blood Culture - Preliminary NO GROWTH AFTER 24 HOURS OF INCUBATION. Resulted Labs and/or images reviewed: Labs reviewed by me, Image(s) reviewed by me Problem List/Assessment/Plan Problem List/Assessment/Plan Sepsis secondary to probable Community-acquired pneumonia, Gram-positive and Gram-negative Acute hypoxic respiratory failure WBC 18.3, now 11 Started IV ceftriaxone and azithromycin 09/21 Sputum culture with induction pending Nebulized treatment with levalbuterol and ipratropium Blood culture pending MRSA nares pending Ruled out COVID and influenza at this point Testing negative Lower extremity malleolar grade 1 pressure sore-skin intact-present on admission Calamine lotion q.i.d.. Foam cradle to bilateral foot Position change q.12 History of epilepsy Mother reports last seizure was 2 days back, grandmal Continue home medication lamotrigine and valproate via G tube Transaminitis due to Sepsis-resolved Monitor Cerebral palsy Failure to thrive status post G-tube Continue feeding via G-tube Dietary consultation Vitamin-D insufficiency Supplemented DVT prophylaxis Lovenox 40 mg sc daily Plan discussed with patient and his mother at bedside, all questions have been answered Goals of care discussed with the patient and patient's mother who is the power of workers compensation defense attorney for more than 22 minutes, resuscitate but do not intubate Case discussed with Dr. Dove Plan discussed with: Patient, Other (Mother at bedside) My Orders My Orders Orders - DEBBY HOFFMAN Procedure Category Date Status Time Covid19 Antigen Bren LAB 09/22/24 In Process Rapid Influenza A&B LAB 09/22/24 In Process 07:21 Mrsa Screen PHIL 09/22/24 In Process 16:08 Hemoglobin A1c LAB 09/23/24 Verified 04:00 Lamotrigine Tablet PHA 09/22/24 In Process (Lamictal Tablet) 10:00 Patients Own PHA 09/22/24 In Process Medication 11:00 Calamine Lotion PHA 09/22/24 In Process 08:45 Ergocalciferol PHA 09/22/24 In Process (Vitamin D 50,000 09:45 Patients Own PHA 09/22/24 In Process Medication 18:00 Lorazepam 2mg/Ml Inj PHA 09/22/24 In Process (Ativan Inj) 15:30 Lorazepam 2mg/Ml Inj PHA 09/22/24 In Process (Ativan Inj) 15:30 Foam Cradle To ORDERS 09/22/24 Transmitted Bilateral Feet 15:26 Patients Own PHA 09/23/24 In Process Medication 10:00 Nutritional PHA 09/22/24 In Process Supplements (Jevity 16:30 Patients Own PHA 09/23/24 Logged Medication 10:00 DEBBY HOFFMAN RESIDENT Sep 22, 2024 17:13
[2024-09-22 18:11] LABS: COVID19 ANTIGEN SOFIA FIA NEGATIVE (NEGATIVE); Rapid Influenza A Negative (Negative); Rapid Influenza B Negative (Negative)
[2024-09-22] MEDS: ALBUTEROL SULF 2.5 MG/0.5ML(0.5%) NEB SOLN NEB SCH (20:41)
[2024-09-23] VITALS (10 sets, daily range): BP systolic 128–135; BP diastolic 65–77; PULSE 93–104; RESP 18–20; TEMP 98.1–99.1; O2SAT 93–99
[2024-09-23 05:16] LABS: Chloride 104 mmol/L (98-107); Potassium 4.5 mmol/L (3.5-5.1); Sodium 135 mmol/L (136-145)
[2024-09-23 05:17] LABS: Anion Gap 6 (5-15); Carbon Dioxide 25 mmol/L (20-31)
[2024-09-23 05:18] LABS: Calcium 9.5 mg/dL (8.7-10.4)
[2024-09-23 05:22] LABS: Glucose 77 mg/dL (74-106)
[2024-09-23 05:29] LABS: BUN/Creatinine Ratio 17.2 (10.0-20.0); Blood Urea Nitrogen < 5 mg/dL (9-23)
[2024-09-23] MEDS: LORazepam 2MG/ML-1ML VIAL IV PRN (09:15)
[2024-09-23] MEDS: NUTRITIONAL SUPPLEMENTS PO SCH (09:30)
[2024-09-23] MEDS: ENOXAPARIN SOD 40 MG/0.4 ML SYRINGE SC SCH (10:00)
[2024-09-23] MEDS ORDERED: DIVALPROEX SOD PO ONE (10:00)
[2024-09-23 10:11] LABS: Basophils # (auto) 0 10 ^3/uL (0-0.2); Basophils % (auto) 0.3 % (0.0-2.0); Eosinophils # (auto) 0.4 10 ^3/uL (0-0.8); Eosinophils % (auto) 3.2 % (0.0-7.0); Hematocrit 43.9 % (41.0-53.0); Hemoglobin 15.3 g/dL (13.5-17.5); Lymphocytes # (auto) 6.7 10 ^3/uL (0.4-5.4); Lymphocytes % (auto) 51.1 % (10.0-50.0); Mean Corpuscular Hemoglobin 33.7 pg (28.0-32.0); Mean Corpuscular Hgb Conc. 34.8 g/dL (32.0-36.0); Mean Corpuscular Volume 96.6 fL (80.0-100.0); Monocytes # (auto) 0.9 10 ^3/uL (0-1.3); Monocytes % (auto) 6.8 % (0.0-12.0); Neutrophils # (auto) 5.1 10 ^3/uL (1.6-8.6); Neutrophils % (auto) 38.6 % (37.0-80.0); Nucleated Red Blood Cells % 0.6 %; Platelet Count (auto) 129 10^3/uL (140-450); Red Blood Cells 4.54 10^6/uL (4.5-5.90); Red Cell Distribution Width 16.3 % (11.8-14.3); White Blood Cell 13.1 10^3/uL (4.4-10.8)
[2024-09-23] MEDS: DOXYCYCLINE 100MG/250ML 250 ML IV SCH (14:45)
--- NOTE | 2024-09-23 16:08 | DVHPNRES ---
Progress Note Date Seen: Sep 23, 2024 Resident Creating Document: DEBBY HOFFMAN RESIDENT Medical Necessity Reason Pt with a Central, PICC or Fol: No Subjective Review of Systems This is a 33-year-old nonverbal male patient with PMHx of cerebral palsy, microcephaly, 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 Per patient's mother present at bedside, she was experiencing sore throat, fever and chills following which the patient also started experiencing similar symptoms associated with a productive cough which is yellow and sometimes pinkish in color. Says that the patient has oxygen at home which he uses intermittently. Patient was saturating 88% on 2 L oxygen. Patient was distressed, his respiratory rate was high and he was experiencing fever and chills but denies nausea/vomiting. Patient's mother reports that ES chronically constipated but recently started getting loose stools but less than 3 stools in a day. Patient is nonambulatory and he experiencing seizures every couple of days which are grand mal. He has a epilepsy as a child. Drying Frame Operator: Dr. Thomas PCP Dr. Salazar Home medications: Lamotrigine, tizanidine, valproate, lorazepam 09/22 - Patient is seen and examined in ER. Mother is the power of attorney lawyer. Reports no acute distress but is nonfvcal. Mother says that this is the patient's baseline. Chest x-ray completed shows left lobar lobe opacity, started on IV azithromycin and ceftriaxone. 09/23-patient is nonfocal, father at bedside reports patient is doing better. Preliminary Blood culture shows Gram-positive cocci in cluster. Repeat blood culture ordered. Antibiotics switched from IV azithromycin to doxycycline. WBC trended up to 13 with 51% lymphocytes Objective vital signs Vital Sign Date Time Temp Pulse Resp B/P (MAP) Pulse Ox O2 Delivery O2 Flow Rate FiO2 09/23/24 11:43 98 Nasal Cannula* 2 28 09/23/24 06:44 100 18 09/23/24 05:39 98.1 132/77 (95) 98.1 Total Intake and Output 09/22/24 09/22/24 09/23/24 15:00 23:00 07:00 Intake Total 850 ml 0 ml Output Total 3 ml Balance 850 ml 0 ml -3 ml medications Current Medications Medications Dose Ordered Sig/Misael Route Start Time Stop Time Status Last Admin Dose Admin Nitroglycerin 0.4 mg Q5MINP PRN SL 09/21/24 20:45 Morphine Sulfate 2 mg Q30M PRN IV 09/21/24 20:45 Enoxaparin Sodium 40 mg DAILY SC 09/23/24 10:00 Ceftriaxone Sodium 50 ml @ 100 mls/hr DAILY@ IV 09/22/24 09:00 Cancel Ceftriaxone Sodium 50 ml @ 100 mls/hr DAILY@09 IV 09/22/24 09:00 09/23/24 09:31 100 MLS/HR Lamotrigine 200 mg BID GT 09/22/24 10:00 09/23/24 11:02 200 MG Patient Own Medication 3 DAILY PO 09/22/24 11:00 09/23/24 11:03 3 Calamine 1 applic QIDP PRN TOP 09/22/24 08:45 Ergocalciferol 50,000 unit Q7D PO 09/22/24 09:45 Patient Own Medication 4 QPM PO 09/22/24 18:00 09/22/24 18:57 4 Lorazepam 1 mg Q5MINP PRN IV 09/22/24 15:30 Lorazepam 0.5 mg Q6HP PRN IV 09/22/24 15:30 09/23/24 09:15 0.5 MG Enteral Nutritional Formula 1,000 ml 30ML/HR GT 09/22/24 16:30 Patient Own Medication 1 QID PO 09/23/24 10:00 09/23/24 12:34 1 Albuterol 2.5 mg Q6HWA NEB 09/22/24 18:00 09/23/24 06:38 2.5 MG Patient Own Medication 3 ml BID GT 09/23/24 22:00 Doxycycline Hyclate 250 ml @ 125 mls/hr Q12HR IV 09/23/24 12:30 09/23/24 14:45 125 MLS/HR Examination Young male patient lying in bed, in no acute distress General: Afebrile, palor, mucosae are moist Cardiovascular: Regular S1 and S2. No murmurs, gallops or rubs. No JVD elevation. No pedal edema. Grade 1 pressure sore present on the malleolus in the lower extremity. Skin is intact. Respiratory: Saturating 95% on 2 L nasal cannula. Clear lung sounds on auscultation Abdomen: Soft, nontender, nondistended, normoactive bowel sounds, no rebound tenderness, no organomegaly, no masses Genitourinary: Deferred MSK/skin: Mobilizes 4 limbs. Skin is dry and warm Neurological: No motor, no sensitive deficits, normal speech. Pupils are isocoric and reactive. Psych/Mental Status: Could not be determined laboratory and microbiology Laboratory Tests 09/23/24 09:44 09/23/24 04:44 Test 09/23/24 04:44 Range/Units Serum Glucose 77 74-106 mg/dL Microbiology Date/Time Source Procedure Growth Status 09/21/24 16:03 Blood Blood Culture - Preliminary Resulted Labs and/or images reviewed: Labs reviewed by me, Image(s) reviewed by me Problem List/Assessment/Plan Problem List/Assessment/Plan Sepsis secondary to probable Community-acquired pneumonia, Gram-positive and Gram-negative Acute hypoxic respiratory failure WBC 18.3, now 13 with 51% lymphocytes Started IV ceftriaxone starting 09/21 and doxycycline 09/23. Received IV azithromycin for 2 days. Sputum culture with induction pending Nebulized treatment with levalbuterol and ipratropium Preliminary Blood culture shows Gram-positive cocci in cluster. Repeat blood culture ordered. Antibiotics switched from IV azithromycin to doxycycline. Repeated blood culture. MRSA nares pending Ruled out COVID and influenza at this point Testing negative Lower extremity malleolar grade 1 pressure sore-skin intact-present on admission Calamine lotion q.i.d.. Foam cradle to bilateral foot Position change q.12 Thrombocytopenia Liver ultrasound pending History of epilepsy Mother reports last seizure was 2 days back, grandmal Continue home medication lamotrigine and valproate via G tube Transaminitis due to Sepsis-resolved Monitor Cerebral palsy Failure to thrive status post G-tube Continue feeding via G-tube Dietary consultation Vitamin-D insufficiency Supplemented DVT prophylaxis Lovenox 40 mg sc daily Plan discussed with patient and his mother at bedside, all questions have been answered Goals of care discussed with the patient and patient's mother who is the power of attorney lawyer for more than 22 minutes, resuscitate but do not intubate Case discussed with Dr. Nunez Plan discussed with: Patient, Other (Father, mother at bedside) My Orders My Orders Orders - DEBBY HOFFMAN Procedure Category Date Status Time Nutritional PHA 09/22/24 In Process Supplements (Jevity 16:30 Patients Own PHA 09/23/24 In Process Medication 10:00 Communication Order ORDERS 09/22/24 Transmitted 17:53 Dietary Cons For NOURISH 09/22/24 Transmitted Malnutrition 17:54 Seizure Precautions ALONZO 09/22/[address] 17:54 Albuterol Medneb PHA 09/22/24 In Process (Ventolin Medneb) 18:00 (Nf) Clobazam (Onfi) PHA 09/23/24 In Process 22:00 Doxycycline PHA 09/23/24 In Process 100mg/250ml 12:30 Blood Culture PHIL 09/23/24 In Process 12:27 Date of Service: Sep 23, 2024 Billing Provider: MARY NUNEZ MD Common Visit Codes: [id number] INP/OBS CARE(HIGH) DEBBY HOFFMAN Sep 23, 2024 16:08 MARY NUNEZ MD Sep 24, 2024 10:34
[2024-09-23] MEDS: CLOBAZAM GT SCH (22:28)
[2024-09-24] VITALS (12 sets, daily range): BP systolic 104–148; BP diastolic 60–78; PULSE 69–93; RESP 17–20; TEMP 97.3–98.8; O2SAT 92–98
--- NOTE | 2024-09-24 09:04 | DVH ---
Procedure: US LIVER 09/24/2024 08:12 AM Indication: Thrombocytopenia and transaminitis. Comparison: None Technique: Grayscale and color images of the right upper quadrant were obtained. FINDINGS: ASCITES: None. LIVER: Liver measures 15 cm craniocaudal. Liver parenchyma is homogeneous in echotexture. No focal le tao is identified. No intrahepatic ductal dilatation. Normal directional flow is seen in the portal vein. GALLBLADDER: Gallbladder is packed with calculi with shadowing seen from gallbladder fossa. Gallbladd er wall is poorly evaluated due to shadowing from the calculi. Sonographic Gant's sign is negative . COMMON BILE DUCT: Obscured by bowel gas. PANCREAS: Obscured by bowel gas. RIGHT KIDNEY: Normal in size , 11 cm in craniocaudal without hydronephrosis. No focal lesions identif ied. AORTA, IVC: Visualized portions are unremarkable. OTHER: None. IMPRESSION: 1. Suboptimal exam due to bowel gas , decubitus position of the patient and contracted posture. 2. Gallbladder is packed with calculi. Sonographic gant's sign is negative. Gallbladder wall is p oorly evaluated. Acute cholecystitis is unlikely. 3. The left hepatic lobe is not well evaluated. The right hepatic lobe is unremarkable. No hepatome dayo. 4. The right kidney is unremarkable.
[2024-09-24 12:30] LABS: Basophils # (auto) 0 10 ^3/uL (0-0.2); Basophils % (auto) 0.3 % (0.0-2.0); Eosinophils # (auto) 0.3 10 ^3/uL (0-0.8); Eosinophils % (auto) 3.9 % (0.0-7.0); Hematocrit 39.8 % (41.0-53.0); Lymphocytes # (auto) 3.8 10 ^3/uL (0.4-5.4); Mean Corpuscular Hgb Conc. 35.1 g/dL (32.0-36.0); Mean Corpuscular Volume 96.7 fL (80.0-100.0); Monocytes # (auto) 0.7 10 ^3/uL (0-1.3); Monocytes % (auto) 10.5 % (0.0-12.0); Neutrophils # (auto) 2.2 10 ^3/uL (1.6-8.6); Neutrophils % (auto) 31.3 % (37.0-80.0); Nucleated Red Blood Cells % 0.1 %; Platelet Count (auto) 142 10^3/uL (140-450); Red Blood Cells 4.12 10^6/uL (4.5-5.90); Red Cell Distribution Width 15.9 % (11.8-14.3)
[2024-09-24 12:40] LABS: Chloride 102 mmol/L (98-107); Sodium 136 mmol/L (136-145)
[2024-09-24 12:41] LABS: Anion Gap 3 (5-15); Calcium 9.9 mg/dL (8.7-10.4); Carbon Dioxide 31 mmol/L (20-31)
[2024-09-24 12:46] LABS: BUN/Creatinine Ratio 17.1 (10.0-20.0); Blood Urea Nitrogen 6 mg/dL (9-23); Glucose 115 mg/dL (74-106)
--- NOTE | 2024-09-24 15:15 | DVHPNRES ---
Progress Note Date Seen: Sep 24, 2024 Resident Creating Document: EMILIANO ANTHONY RESIDENT Medical Necessity Reason Pt with a Central, PICC or Fol: No Subjective Review of Systems 33-year-old nonverbal male patient with PMHx of cerebral palsy, microcephaly, 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 Per patient's mother present at bedside, she was experiencing sore throat, fever and chills following which the patient also started experiencing similar symptoms associated with a productive cough which is yellow and sometimes pinkish in color. Says that the patient has oxygen at home which he uses intermittently. Patient was saturating 88% on 2 L oxygen. Patient was distressed, his respiratory rate was high and he was experiencing fever and chills but denies nausea/vomiting. Patient's mother reports that ES chronically constipated but recently started getting loose stools but less than 3 stools in a day. Patient is nonambulatory and he experiencing seizures every couple of days which are grand mal. He has a epilepsy as a child. Patient seen and examined at bedside. Patient is currently on 2 L of oxygen through nasal cannula. Patient's father is at bedside. Mentioned no new complaints Objective vital signs Vital Sign Date Time Temp Pulse Resp B/P (MAP) Pulse Ox O2 Delivery O2 Flow Rate FiO2 09/24/24 13:34 80 20 98 09/24/24 13:00 98.8 104/60 (75) 98.8 09/24/24 12:25 Nasal Cannula 1.0 09/24/24 12:25 24 Total Intake and Output 09/23/24 09/23/24 09/24/24 15:00 23:00 07:00 Intake Total 490 ml 237 ml Balance 490 ml 237 ml medications Current Medications Medications Dose Ordered Sig/Misael Route Start Time Stop Time Status Last Admin Dose Admin Nitroglycerin 0.4 mg Q5MINP PRN SL 09/21/24 20:45 Morphine Sulfate 2 mg Q30M PRN IV 09/21/24 20:45 Enoxaparin Sodium 40 mg DAILY SC 09/23/24 10:00 Ceftriaxone Sodium 50 ml @ 100 mls/hr DAILY@09 IV 09/22/24 09:00 Cancel Ceftriaxone Sodium 50 ml @ 100 mls/hr DAILY@09 IV 09/22/24 09:00 09/24/24 09:54 100 MLS/HR Lamotrigine 200 mg BID GT 09/22/24 10:00 09/24/24 09:55 200 MG Patient Own Medication 3 DAILY PO 09/22/24 11:00 09/24/24 09:56 3 Calamine 1 applic QIDP PRN TOP 09/22/24 08:45 Ergocalciferol 50,000 unit Q7D PO 09/22/24 09:45 Patient Own Medication 4 QPM PO 09/22/24 18:00 09/23/24 22:28 4 Lorazepam 1 mg Q5MINP PRN IV 09/22/24 15:30 Lorazepam 0.5 mg Q6HP PRN IV 09/22/24 15:30 09/24/24 05:50 0.5 MG Enteral Nutritional Formula 1,000 ml 30ML/HR GT 09/22/24 16:30 Patient Own Medication 1 QID PO 09/23/24 10:00 09/24/24 12:23 1 Albuterol 2.5 mg Q6HWA NEB 09/22/24 18:00 09/24/24 12:25 2.5 MG Doxycycline Hyclate 250 ml @ 125 mls/hr Q12HR IV 09/23/24 12:30 09/23/24 22:27 125 MLS/HR Patient Own Medication 6 ml QAM GT 09/24/24 15:15 UNV Patient Own Medication 5 ml HS GT 09/24/24 22:00 UNV Examination Young male patient lying in bed, in no acute distress General: Afebrile, palor, mucosae are moist Cardiovascular: Regular S1 and S2. No murmurs, gallops or rubs. No JVD elevation. No pedal edema. Grade 1 pressure sore present on the malleolus in the lower extremity. Skin is intact. Respiratory: Saturating 95% on 2 L nasal cannula. Clear lung sounds on auscultation Abdomen: Soft, nontender, nondistended, normoactive bowel sounds, no rebound tenderness, no organomegaly, no masses Neurological: Contractures due to cerebral palsy Psych/Mental Status: Could not be determined laboratory and microbiology Laboratory Tests 09/24/24 12:07 Test 09/24/24 12:07 Range/Units Serum Glucose 115 H 74-106 mg/dL Microbiology Date/Time Source Procedure Growth Status 09/23/24 14:47 Blood Blood Culture - Preliminary NO GROWTH AFTER 24 HOURS OF INCUBATION. Resulted 09/22/24 16:49 Nose MRSA Screen - Final Complete Labs and/or images reviewed: Labs reviewed by me, Image(s) reviewed by me Problem List/Assessment/Plan Problem List/Assessment/Plan Assessment/plan #Sepsis secondary to probable Community-acquired pneumonia, Gram-positive and Gram-negative -patient received IV fluids -continue IV antibiotics -blood culture, sputum culture #Acute hypoxic respiratory failure due to community-acquired pneumonia -currently on 2 L of oxygen through nasal cannula # community-acquired pneumonia, Gram-positive/Gram-negative Started IV ceftriaxone starting 09/21 and doxycycline 09/23. Received IV azithromycin for 2 days. Sputum culture with induction pending Nebulized treatment with levalbuterol and ipratropium Preliminary Blood culture shows Gram-positive cocci in cluster. Repeat blood culture ordered. Antibiotics switched from IV azithromycin to doxycycline. Repeated blood culture. MRSA nares pending Ruled out COVID and influenza at this point Testing negative #Lower extremity malleolar grade 1 pressure sore-skin intact-present on admission Calamine lotion q.i.d.. Foam cradle to bilateral foot Position change q.12 #Thrombocytopenia Liver ultrasound #History of epilepsy Mother reports last seizure was 2 days back, grandmal Continue home medication lamotrigine and valproate via G tube #Transaminitis due to Sepsis-resolved Monitor #Cerebral palsy Failure to thrive status post G-tube Continue feeding via G-tube Dietary consultation #Vitamin-D insufficiency Supplemented #DVT prophylaxis Lovenox 40 mg sc daily Plan discussed with patient and his mother at bedside, all questions have been answered Goals of care discussed with the patient and patient's mother who is the power of litigation attorney for more than 22 minutes, resuscitate but do not intubate Case discussed with Dr. Hernández Plan discussed with: Patient, Other (father) My Orders My Orders Orders - EMILIANO ANTHONY Procedure Category Date Status Time Code Status CODE 09/24/24 Transmitted 15:08 (Nf) Clobazam (Onfi) PHA 09/24/24 Logged 15:15 (Nf) Clobazam (Onfi) PHA 09/24/24 Logged 22:00 (Nf) Clobazam (Onfi) PHA 09/24/24 Transmitted 22:00 Dietary Evaluation Review Comments: No nutrition problem at present. Expected Outcomes/Goals: Maintain Weight. Date of Service: Sep 24, 2024 Billing Provider: MARY HERNÁNDEZ MD Common Visit Codes: [id number] INP/OBS CARE(HIGH) EMILIANO ANTHONY RESIDENT Sep 24, 2024 15:15 MARY HERNÁNDEZ MD Sep 27, 2024 18:13
[2024-09-24] MEDS: CLOBAZAM 2.5 MG/ML GT SCH (20:50)
[2024-09-24] MEDS ORDERED: CLOBAZAM OR SCH (22:00)
[2024-09-25] VITALS (13 sets, daily range): BP systolic 102–134; BP diastolic 52–69; PULSE 77–88; RESP 17–20; TEMP 97.4–98.6; O2SAT 92–99
[2024-09-25] MEDS: CLOBAZAM 2.5 MG/ML GT SCH (06:57)
[2024-09-25 07:46] LABS: Chloride 102 mmol/L (98-107); Potassium 4.6 mmol/L (3.5-5.1); Sodium 136 mmol/L (136-145)
[2024-09-25 07:47] LABS: Anion Gap 7 (5-15); Carbon Dioxide 27 mmol/L (20-31)
[2024-09-25 07:48] LABS: Calcium 10.1 mg/dL (8.7-10.4)
[2024-09-25 07:52] LABS: Glucose 87 mg/dL (74-106)
[2024-09-25 07:53] LABS: BUN/Creatinine Ratio 15.4 (10.0-20.0); Blood Urea Nitrogen 6 mg/dL (9-23); Magnesium 1.9 mg/dL (1.6-2.6)
[2024-09-25 08:00] LABS: Hematocrit 44.6 % (41.0-53.0); Mean Corpuscular Hemoglobin 32.6 pg (28.0-32.0); Mean Corpuscular Hgb Conc. 33.7 g/dL (32.0-36.0); Mean Corpuscular Volume 96.5 fL (80.0-100.0); Platelet Count (auto) 152 10^3/uL (140-450); Red Blood Cells 4.62 10^6/uL (4.5-5.90); Red Cell Distribution Width 15.9 % (11.8-14.3); White Blood Cell 8.9 10^3/uL (4.4-10.8)
[2024-09-25 08:13] LABS: Basophils % (manual) 0 (0.0-2.0); Blast Cells 0; Metamyelocytes % 0; Myelocytes % 0; Promyelocytes % 0
[2024-09-25] MEDS: DIVALPROEX SOD GT SCH ×2 (08:21→08:58)
[2024-09-25 08:45] LABS: Band Neutrophils % (manual) 5; Eosinophils % (manual) 3 (0-7); Lymphocytes % (manual) 67 (10.0-50.0); Monocytes % (manual) 7 (0-12); Platelet Estimate Adequate; Reactive Lymphocytes 2
[2024-09-25] MEDS: NUTRITIONAL SUPPLEMENTS GT SCH (12:00)
[2024-09-25 13:20] LABS: Urine Bacteria None Seen /hpf (None Seen)
[2024-09-25 13:29] LABS: Urine Blood Negative /uL (Negative); Urine Clarity Clear (Clear); Urine Color Light-Yellow (Yellow); Urine Protein, UAD Negative (Negative); Urine Specific Gravity 1.008 (1.001-1.035); Urine Urobilinogen Normal (Negative); Urine WBC <1 /hpf (0 - 3); Urine pH 7.5 (5.0-9.0)
--- NOTE | 2024-09-25 14:34 | DVHDSRES ---
Discharge Summary Date of Admission Resident Creating Document: DEBBY HOFFMAN RESIDENT Sep 21, 2024 at 20:40 Date of Discharge: Sep 25, 2024 Labs/Diagnostic Data: Laboratory Results Test 09/25/24 10:00 09/25/24 07:30 09/22/24 16:50 09/22/24 12:56 Urine Color Light-yellow (Yellow) Urine Clarity Clear (Clear) Urine pH 7.5 (5.0-9.0) Urine Specific [place] 1.008 (1.001-1.035) Urine Protein Negative (Negative) Urine Ketones Negative (Negative) Urine Blood Negative /uL (Negative) Urine Nitrite Negative (Negative) Urine Bilirubin Negative (Negative) Urine Urobilinogen Normal mg/dL (Negative) Urine Leukocyte Esterase Negative /uL (Negative) Urine RBC 1 /hpf (0 - 3) Urine WBC <1 /hpf (0 - 3) Urine Squamous Epithelial Cells Few /hpf (<5) Urine Bacteria None seen /hpf (None Seen) Urine Glucose Normal mg/dL (Normal) White Blood Count 8.9 10^3/uL (4.4-10.8) Red Blood Count 4.62 10^6/uL (4.5-5.90) Hemoglobin 15.0 g/dL (13.5-17.5) Hematocrit 44.6 % (41.0-53.0) Mean Corpuscular Volume 96.5 fL (80.0-100.0) Mean Corpuscular Hemoglobin 32.6 pg (28.0-32.0) Mean Corpuscular Hemoglobin Concent 33.7 g/dL (32.0-36.0) Red Cell Distribution Width 15.9 % (11.8-14.3) Platelet Count 152 10^3/uL (140-450) Mean Platelet Volume 8.0 fL (6.9-10.8) Neutrophils (%) (Auto) % (37.0-80.0) Lymphocytes (%) (Auto) % (10.0-50.0) Monocytes (%) (Auto) % (0.0-12.0) Eosinophils (%) (Auto) % (0.0-7.0) Basophils (%) (Auto) % (0.0-2.0) Neutrophils # (Auto) 10 ^3/uL (1.6-8.6) Lymphocytes # (Auto) 10 ^3/uL (0.4-5.4) Monocytes # (Auto) 10 ^3/uL (0-1.3) Eosinophils # (Auto) 10 ^3/uL (0-0.8) Basophils # (Auto) 10 ^3/uL (0-0.2) Differential Total Cells Counted 100.0 (100) Neutrophils % (Manual) 16 (37.0-80.0) Band Neutrophils % (Manual) 5 Lymphocytes % (Manual) 67 (10.0-50.0) Monocytes % (Manual) 7 (0-12) Eosinophils % (Manual) 3 (0-7) Basophils % (Manual) 0 (0.0-2.0) Metamyelocytes % (manual) 0 Myelocytes % (Manual) 0 Promyelocytes % (Manual) 0 Blast Cells % (Manual) 0 Nucleated Red Blood Cells % Reactive Lymphocytes 2 Platelet Estimate Adequate Sodium Level 136 mmol/L (136-145) Potassium Level 4.6 mmol/L (3.5-5.1) Chloride Level 102 mmol/L (98-107) Carbon Dioxide Level 27 mmol/L (20-31) Anion Gap 7 (5-15) Blood Urea Nitrogen 6 mg/dL (9-23) Creatinine 0.39 mg/dL (0.700-1.30) Glomerular Filtration Rate Calc 151 mL/min (>90) BUN/Creatinine Ratio 15.4 (10.0-20.0) Serum Glucose 87 mg/dL (74-106) Calcium Level 10.1 mg/dL (8.7-10.4) Magnesium Level 1.9 mg/dL (1.6-2.6) Influenza Type A Antigen Negative (Negative) Influenza Type B Antigen Negative (Negative) SARS-CoV-2 Antigen (Rapid) Negative (NEGATIVE) Prothrombin Time 11.9 sec (9.3-11.8) Prothrombin Time INR 1.13 (0.9-1.15) Activated Partial Thromboplast Time 26.8 SEC (24.5-34.5) Test 09/22/24 07:49 09/22/24 06:05 09/21/24 16:03 Hemoglobin A1c 5.3 % A1C (<5.7) Vitamin B12 Level 1135 pg/mL (211-911) Vitamin D 25-Hydroxy 27.8 ng/mL (30.0-100) Total Bilirubin 0.4 mg/dL (0.2-1.0) Aspartate Amino Transferase (AST) 38 U/L (13-40) Alanine Aminotransferase (ALT) 33 U/L (7-40) Alkaline Phosphatase 103 U/L (46-116) Total Protein 6.3 g/dL (5.7-8.2) Albumin 3.7 g/dL (3.2-4.8) Thyroid Stimulating Hormone (TSH) 0.96 uIU/mL (0.55-4.78) Lactic Acid Level 1.3 mmol/L (0.4-2.0) Troponin I High Sensitivity 38 ng/L (</=54) B-Type Natriuretic Peptide 186.64 pg/mL (0-100) Other Laboratory Tests 09/25/24 07:30 Brief Hx & Hospital Course: Jace Fan is a 33-year-old nonverbal male patient with PMHx of cerebral palsy, microcephaly, 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 Per patient's mother present at bedside, she was experiencing sore throat, fever and chills following which the patient also started experiencing similar symptoms associated with a productive cough which is yellow and sometimes pinkish in color. Says that the patient has oxygen at home which he uses intermittently. Patient was saturating 88% on 2 L oxygen. Patient was distressed, his respiratory rate was high and he was experiencing fever and chills but denies nausea/vomiting. Patient's mother reports that ES chronically constipated but recently started getting loose stools but less than 3 stools in a day. Patient is nonambulatory and he experiencing seizures every couple of days which are grand mal. He has a epilepsy as a child. 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 Thomas PCP Dr. Salazar Home medications: Lamotrigine, tizanidine, valproate, lorazepam During hospital stay, patient required oxygen support at 4 L NC, and he was diagnosed with sepsis secondary to probable aspiration versus community-acquired pneumonia, and acute hypoxic respiratory failure. Patient is started on IV ceftriaxone starting 09/21 to 09/25 and doxycycline 09/23 to 09/25, along with nebulized treatment. Received IV azithromycin previous for 2 days. COVID and influenza testing came out negative. MRSA nares was negative. Blood culture on 09/21 showed micrococcus species which could be a contaminant therefore repeat blood cultures were ordered on 09/23 which showed no growth after 48 hours of incubation. Patient white cell count trended down, and is acute condition was resolved. Liver ultrasound was completed which showed gallbladder is packed with calculi. Sonographic Gant sign was negative. Acute cholecystitis is unlikely. Physical exam also showed lower extremity malleolar grade 1 pressure sore present on admission-skin was intact for which calamine lotion and positioning change was done every 2 hour. Patient is she has her medication was continued during the hospital stay and he was continued on G-tube feeding. 09/25-patient is hemodynamically and clinically stable and is therefore being discharged home. Discharge planning is completed with the mother at bedside who agreed to the plan. Discharge plan -received IV ceftriaxone for 5 days and IV doxycycline for 3 days during the stay - MRSA and COVID and influenza negative - discharged on Augmentin 875 mg twice daily for 4 days and doxycycline 100 mg twice daily for the next 4 days Examination Young male patient lying in bed, in no acute distress General: Afebrile, palor, mucosae are moist Cardiovascular: Regular S1 and S2. No murmurs, gallops or rubs. No JVD elevation. No pedal edema. Grade 1 pressure sore present on the malleolus in the lower extremity. Skin is intact. Respiratory: Saturating 95% on 2 L nasal cannula. Clear lung sounds on auscultation Abdomen: Soft, nontender, nondistended, normoactive bowel sounds, no rebound tenderness, no organomegaly, no masses Genitourinary: Deferred MSK/skin: Mobilizes 4 limbs. Skin is dry and warm Neurological: No motor, no sensitive deficits, normal speech. Pupils are isocoric and reactive. Psych/Mental Status: Could not be determined Operations or Procedures ORDERING PHYSICIAN: DEBBY HOFFMAN RESIDENT PROCEDURE(s): LIVUS - LIVER REASON: Thrombocytopenia and transaminitis ORDER NUMBER(s): [id number], ACCESSION NUMBER(s): [id number] Procedure: US LIVER 09/24/2024 08:12 AM Indication: Thrombocytopenia and transaminitis. Comparison: None Technique: Grayscale and color images of the right upper quadrant were obtained. FINDINGS: ASCITES: None. LIVER: Liver measures 15 cm craniocaudal. Liver parenchyma is homogeneous in echotexture. No focal lesion is identified. No intrahepatic ductal dilatation. Normal directional flow is seen in the portal vein. GALLBLADDER: Gallbladder is packed with calculi with shadowing seen from gallbladder fossa. Gallbladder wall is poorly evaluated due to shadowing from the calculi. Sonographic Gant's sign is negative. COMMON BILE DUCT: Obscured by bowel gas. PANCREAS: Obscured by bowel gas. RIGHT KIDNEY: Normal in size , 11 cm in craniocaudal without hydronephrosis. No focal lesions identified. AORTA, IVC: Visualized portions are unremarkable. OTHER: None. IMPRESSION: 1. Suboptimal exam due to bowel gas , decubitus position of the patient and contracted posture. 2. Gallbladder is packed with calculi. Sonographic gant's sign is negative. Gallbladder wall is poorly evaluated. Acute cholecystitis is unlikely. 3. The left hepatic lobe is not well evaluated. The right hepatic lobe is unremarkable. No hepatomegaly. 4. The right kidney is unremarkable. ATED BY: AILIN BISWAS MD DICTATED DATE/TIME: 09/24/24900 SIGNED BY: AILIN BISWAS MD SIGNED DATE/TIME: 09/24/24900 CC: ORDERING PHYSICIAN: KEON COOMBS DO PROCEDURE(s): CXRP - CHEST PORTABLE REASON: sob ORDER NUMBER(s): [id number], ACCESSION NUMBER(s): [id number] Procedure: XY CHEST PORTABLE 09/21/2024 03:47 PM Indication: sob. Comparison: None TECHNIQUE: XY CHEST PORTABLE FINDINGS: Medical devices: None. Cardiomediastinal: The heart is normal in size. Pulmonary vasculature is within normal limits. Lungs: Pulmonary opacities are seen in the left lower lung zone. Parenchymal scarring noted in the right midlung zone. The costophrenic angles are clear. No pneumothorax. Bones/soft tissues: No acute abnormality is noted. Levoscoliosis of the thoracic spine noted. IMPRESSION: 1. Left lower lobe pneumonia. ATED BY: AILIN BISWAS MD DICTATED DATE/TIME: 09/21/241615 SIGNED BY: AILIN BISWAS MD SIGNED DATE/TIME: 09/21/241615 CC: Condition at Discharge: Stable Final Diagnosis/Problems List Sepsis secondary to likely aspiration Versus community-acquired pneumonia Acute hypoxic respiratory failure Ruled out COVID and influenza Lower extremity malleolar grade 1 pressure sore-skin intact-present on admission Cholelithiasis but no cholecystitis Thrombocytopenia History of epilepsy Transaminitis due to sepsis Cerebral palsy Failure to thrive status post G-tube Vitamin-D insufficiency Discharge Disposition: Home Discharge Instruct/Medications Diet: See Comment Diet comment: G tube feeding Activity: No Restrictions, As Tolerated Follow Up/Referral: Follow up with Discharge clinic appointemnt in 7-14 days Follow up with Primary care physician in 7-14 days Medications: Augmenetin Doxycycline Discharge Statement: "Patient was advised to return to the ER or call 911 if any headaches, dizziness, shortness of breath, chest pain, abdominal pain, bleeding, fevers, or worsening of medical condition. Patient was counseled about treatment plan, medications, possible side effects, patientverbalized understanding. All questions were answered to the best of my ability. This discharge took greater then 30 minutes in planning, reviewing documentation, counseling the patient, and discussing with other team members." ASSESSMENT ASSESSMENT Assessment Sepsis secondary to likely aspiration pneumonia DEBBY HOFFMAN RESIDENT Sep 25, 2024 14:34
[2024-09-25] MEDS ORDERED: AUG875T PO (15:21)
[2024-09-25] MEDS ORDERED: DOXY-267 PO (15:21)
[2024-09-25] MEDS ORDERED: PATIENTS OWN MEDICATION GT SCH (22:00)
== END 2024-09-25 17:48 | disposition home or self-care (01) | DRG 720 ==
LOC: EDBD 15:17 → ER 15:32 → OVERFLOW 20:40 → EAST 09-22 11:20
PROVIDERS: ADMIT Student in an Organized Health Care Education/Training Program; ATTEND Student in an Organized Health Care Education/Training Program
DX: A41.50 Gram-negative sepsis, unspecified (principal); J96.01 Acute respiratory failure with hypoxia; G82.50 Quadriplegia, unspecified; J15.69 Pneumonia due to other Gram-negative bacteria; D69.6 Thrombocytopenia, unspecified; J18.9 Pneumonia, unspecified organism; E87.1 Hypo-osmolality and hyponatremia; R62.7 Adult failure to thrive; Z20.822 Contact with and (suspected) exposure to COVID-19; D72.829 Elevated white blood cell count, unspecified; R74.01 Elevation of levels of liver transaminase levels; R65.20 Severe sepsis without septic shock; Z68.28 Body mass index [BMI] 28.0-28.9, adult
CPT/HCPCS: 36415; 71045; 76705; 80048; 80053; 81001; 82306; 82607; 83036; 83605; 83735; 83880; 84443; 84484; 85007; 85025; 85027; 85610; 85730; 87040; 87077; 87081; 87086; 87426; 87804; 94640; 99291; G0378; J0131; J3490